=== PATIENT | female | born 1965 | race African-American/Black ===

== ENCOUNTER 2017-12-22 18:11 | Emergency (ER) | payer MEDICAID ==
[~2017-12-22] VITALS: Ht 172.7 cm; Wt 121.0 kg
[2017-12-22] MEDS ORDERED: ACETAMINOPHEN WITH CODEINE 300/30MG TABLET PO ONE (22:30)
[2017-12-22 22:55] VITALS: BP 118/48
== END 2017-12-23 00:16 | disposition home or self-care (01) ==
LOC: ER 18:11
DX: M25.552 Pain in left hip (principal); Z98.890 Other specified postprocedural states
CPT/HCPCS: 73502; 99284

== ENCOUNTER 2018-08-19 09:55 | Emergency (ER) | payer MEDICAID ==
[~2018-08-19] VITALS: Ht 172.7 cm; Wt 120.0 kg
[2018-08-19 10:50] LABS: CLARITY URINE CLEAR (CLEAR); COLOR URINE YELLOW (YELLOW); KETONES URINE NEGATIVE (NEGATIVE); LEUKOCYTE ESTERASE URINE NEGATIVE (NEGATIVE); NITRITE URINE NEGATIVE (NEGATIVE); OCCULT BLOOD URINE NEGATIVE (NEGATIVE); PROTEIN URINE NEGATIVE (NEGATIVE); UROBILINOGEN URINE 0.2 E.U./dL (0.2-1.0)
[2018-08-19 11:32] LABS: BASOPHILS % 1.1 % (0.0-2.0); EOSINOPHILS % 1.7 % (0.0-5.0); HEMATOCRIT. 36.7 % (36.0-48.0); HEMOGLOBIN. 12.2 g/dL (12.0-16.0); LYMPHOCYTES % 27.7 % (20.0-50.0); MEAN CORPUSCULAR HEMOGLOBIN 28.7 pg (28.0-32.0); MEAN CORPUSCULAR VOLUME 86.5 fL (81.0-99.0); MEAN PLATELET VOLUME 8.6 fl (7.4-10.4); MONOCYTES % 6.6 % (2.0-8.0); NEUTROPHILS % 62.9 % (40.0-76.0); PLATELET 270 x1000/uL (130-400); RED BLOOD CELL COUNT 4.24 mill/uL (4.2-5.4); RED CELL DISTRIBUTION WIDTH 13.1 % (11.6-14.6)
[2018-08-19 11:42] LABS: CHLORIDE 107 mEq/L (98-107)
[2018-08-19 11:48] LABS: B-HCG QUANTITATIVE < 1.0 mIU/mL (<3)
[2018-08-19 12:13] LABS: *AMPHETAMINES SCREEN URINE NEGATIVE (NEGATIVE); *BARBITURATES SCREEN URINE NEGATIVE (NEGATIVE); *BENZODIAZEPINES SCREEN URINE NEGATIVE (NEGATIVE); *COCAINE SCREEN URINE NEGATIVE (NEGATIVE); CANNABINOID URINE SCREEN NEGATIVE (NEGATIVE); METHADONE URINE SCREEN NEGATIVE (NEGATIVE); OPIATES URINE SCREEN NEGATIVE (NEGATIVE); PHENCYCLIDINE URINE SCREEN NEGATIVE (NEGATIVE)
[2018-08-19] MEDS ORDERED: MAGNESIUM OXIDE 400MG TABLET PO SCH (15:45)
[2018-08-19 16:16] VITALS: BP 134/75
== END 2018-08-19 16:18 | disposition home or self-care (01) ==
LOC: ER 09:55
DX: K52.9 Noninfective gastroenteritis and colitis, unspecified (principal); E83.42 Hypomagnesemia; E66.01 Morbid (severe) obesity due to excess calories; E86.0 Dehydration; R79.89 Other specified abnormal findings of blood chemistry; Z98.890 Other specified postprocedural states; K21.9 Gastro-esophageal reflux disease without esophagitis; Z87.440 Personal history of urinary (tract) infections; Z87.09 Personal history of other diseases of the respiratory system
CPT/HCPCS: 36415; 74176; 80053; 80305; 81003; 83036; 83735; 84702; 85025; 87040; 87086; 99285; Z7610

== ENCOUNTER 2018-12-13 16:14 | Emergency (ER) | payer MEDICAID ==
[~2018-12-13] VITALS: Ht 172.7 cm; Wt 122.0 kg
[2018-12-13 19:37] VITALS: BP 132/70
== END 2018-12-13 19:38 | disposition home or self-care (01) ==
LOC: ER 16:14
DX: M72.2 Plantar fascial fibromatosis (principal); Z98.890 Other specified postprocedural states
CPT/HCPCS: 73630; 93971; 99284

== ENCOUNTER 2020-07-28 09:15 | Emergency (ER) | payer OTHER, MEDICAID ==
[~2020-07-28] VITALS: Ht 172.7 cm; Wt 118.0 kg
[2020-07-28] MEDS ORDERED: ASPIRIN 81MG TABLET PO ONE (09:45)
[2020-07-28 09:52] VITALS: BP 119/58
[2020-07-28 10:03] LABS: BASOPHILS % 0.8 % (0.0-2.0); EOSINOPHILS % 1.8 % (0.0-5.0); HEMATOCRIT. 39.3 % (36.0-48.0); HEMOGLOBIN. 13.1 g/dL (12.0-16.0); LYMPHOCYTES % 27.8 % (20.0-50.0); MEAN CORPUSCULAR VOLUME 87.4 fL (81.0-99.0); MEAN PLATELET VOLUME 8.5 fl (7.4-10.4); MONOCYTES % 7.9 % (2.0-8.0); NEUTROPHILS % 61.7 % (40.0-76.0); PLATELET 303 x1000/uL (130-400); RED CELL DISTRIBUTION WIDTH 13.3 % (11.6-14.6)
[2020-07-28 10:11] LABS: CHLORIDE 108 mEq/L (98-107)
== END 2020-07-28 11:17 | disposition home or self-care (01) ==
LOC: ER 09:15 → CANBEDREQ 12:48
DX: R07.89 Other chest pain (principal); R06.02 Shortness of breath; F17.290 Nicotine dependence, other tobacco product, uncomplicated; Z98.890 Other specified postprocedural states
CPT/HCPCS: 36415; 71045; 80053; 83880; 84484; 85025; 93005; 99285; 99406; Z7610